=== PATIENT | female | born 1975 | race Two or more races ===

== ENCOUNTER 2024-08-17 05:40 | Day surgery (SDC) | payer MEDICAID, SELFPAY ==
--- NOTE | 2024-08-14 10:44 | EKG_ITS ---
[facility] Test Date: 2024-08-14 Pat Name: ODESSA QUINTERO Department: Room: - Gender: Female Mobile Crane Operator: IVONNE : 1975 Requested By: Tylor Comer Order Number: [id number] Reading MD: Tylor Comer Measurements Intervals [place] Rate: 89 P: 59 AR: 164 QRS: 14 QRSD: 80 T: 72 QT: 334 QTc: 408 Interpretive Statements SINUS RHYTHM No previous ECG available for comparison /store/S0/[id number]/ecg/[id number].pdf
[2024-08-14 10:56] VITALS: BMI 25.4
[2024-08-14 11:17] LABS: Collection Type, Urine Clean Catch
[2024-08-14 11:48] LABS: Basophils # (Auto) 0.1 Thou/mm3 (0.0-0.2); Basophils % (Auto) 1 % (0-2.5); Eosinophils # (Auto) 0.1 Thou/mm3 (0.0-0.5); Eosinophils % (Auto) 1 % (0-10); Hematocrit 41.4 % (36.0-46.0); Hemoglobin 13.9 g/dL (12.0-16.0); Immature Granulocytes % (Auto) 0 % (0-0); Immature Granulocytes Auto 0.01 Thou/mm3 (0.00-0.00); Lymphocytes # (Auto) 2.2 Thou/mm3 (1.0-4.8); Lymphocytes % (Auto) 27 % (10-50); Mean Corpuscular HGB Conc 33.6 g/dl (31.0-37.0); Mean Corpuscular Hemoglobin 28.3 pg (25.0-35.0); Mean Corpuscular Volume 84 fL (80-100); Monocytes # (Auto) 0.6 Thou/mm3 (0.0-0.8); Monocytes % (Auto) 7 % (0-12); Neutrophils # (Auto) 5.1 Thou/mm3 (1.8-7.7); Neutrophils % (Auto) 64 % (37-80); Nucleated Red Blood Cell % 0 /100 WBC (0); Platelet Count 285 Thou/mm3 (140-440); RDW Standard Deviation 37.1 fL (36.4-46.3); Red Blood Count 4.91 Miln/mm3 (4.00-5.20)
[2024-08-14 11:52] LABS: Bilirubin,Urine Negative (Negative); Blood,Urine Negative (Negative); Clarity,Urine Clear (Clear/Hazy); Color,Urine Lt-Yellow (Lt Yel-Yel); Glucose, Urine Negative (Negative); Ketones,Urine Negative (Negative); Leukocyte Esterase,Urine Negative (Negative); Nitrite,Urine Negative (Negative); Protein,Urine Negative (Neg - Trace); RBC,Urine 2 /hpf (0-3); Specific Gravity,Urine 1.012 (1.001-1.035); Squamous Epithelial Cell,Urine < 1 /hpf (0-5); Urobilinogen,Urine Negative mg/dL (0.0-1.0); WBC,Urine 1 /hpf (0-5)
[2024-08-14 11:54] LABS: Alanine Aminotransferase 18 U/L (10-49); Albumin, Serum 5.2 gm/dL (3.5-5.0); Albumin/Globulin Ratio 2.1 (1.2-2.2); Alkaline Phosphatase 76 U/L (46-116); Anion Gap 9 (7-16); Aspartate Amino Transferase 17 U/L (0-34); BUN/Creatinine Ratio 13 Ratio (12-20); Bilirubin,Total 0.6 mg/dL (0.3-1.2); Blood Urea Nitrogen 10 mg/dL (9-23); Calcium 9.6 mg/dL (8.3-10.6); Calcium (Corrected) 9.6 mg/dL (8.5-10.1); Carbon Dioxide 26.7 mMol/L (20.0-31.0); Chloride 103 mMol/L (98-107); Creatinine (Component) 0.8 mg/dL (0.6-1.3); Estimated Creatinine Clearance 64.1 mL/min (>60); Globulin 2.5 gm/dL (2.3-3.5); Glucose 144 mg/dL (74-106); Osmolality,Calculated 279 (275-295); Potassium 3.5 mMol/L (3.4-5.1); Sodium 139 mMol/L (136-145); Total Protein 7.7 gm/dL (5.7-8.2); eGFR > 60 See Note
[2024-08-14 12:04] LABS: Partial Thromboplastin Time 24.3 Seconds (22.0-36.0); Prothrombin Time 10.9 Seconds (9.0-12.2)
--- NOTE | 2024-08-16 13:47 | PD.SURHP ---
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 Risk benefits and alternatives were discussed with the patient and informed consent is obtained. There is a small risk of injury to the recurrent laryngeal nerve. Past Medical History Past Medical History NEUROLOGIC: Positive Neurological Disorders and Migraine CARDIAC: Negative Cardiac Disorders or Congestive Heart Failure RESPIRATORY: Positive Respiratory Disorders and Pneumonia; Negative Chronic Obstructive Pulmonary Disease (COPD) GASTROINTESTINAL: Negative Gastrointestinal Disorders or Hepatitis GENITOURINARY: Negative Genitourinary Disorders or Renal Disease REPRODUCTIVE: Positive Previous Pregnancies MUSCULOSKELETAL: Positive Musculoskeletal Disorders and Arthritis ENT: Negative History of ENT Problems ENDOCRINE: Negative Endocrine Disorders, Diabetes Mellitus Type 1 or Diabetes Mellitus Type 2 HEMATOLOGIC: Negative Blood Disorders OTHER HISTORY: Negative Hospitalization, Autoimmune Disease, Shingles, Blood Transfusions, Anesthesia Reactions or Cancer Family History FAMILY HISTORY: Positive Family Cardiac Disorders, Family Endocrine Disorders, Family Cancer and Family Surgery; Negative Family Psychiatric Problems, Family Respiratory Disorders, Family Gastrointestinal Problems, Family Genitourinary Problems, Family Reproductive Disorders, Family Musculoskeletal Disorders or Family Anesthesia Reaction Surgical History SURGICAL: Positive Hysterectomy Social History SMOKING STATUS: Never smoker Travel History EB[place]A RISK: No Meds Home Medications and Allergies Home Medications ?Medication ?Instructions ?Recorded ?Confirmed ?Type No Known Home Medications 08/14/24 08/14/24 History Allergies Allergy/AdvReac Type Severity Reaction Status Date / Time No Known Allergies Allergy Verified 08/14/24 10:55 Exam Constitutional Constitutional: no acute distress Routine HEENT Exam Head: Present normocephalic Eye: Present EOMI and PERRL ENT: Present mucous membranes moist Routine Neck Exam Neck: Present supple and trachea midline Comments: There is mass in the right lobe of the thyroid gland it is not attached to the skin and it moves up and down with the thyroid. There is no jugular venous distention and the abnormal palpable nodes in the neck. Routine Chest/Breast/Axilla Exam Chest wall: Absent tenderness or mass Routine Respiratory Exam Respiratory: Present chest non-tender, lungs clear, normal breath sounds and no resp distress; Absent respiratory distress Routine Cardiovascular Exam Cardiovascular: Present RRR Routine Abdominal Exam Abdominal: Present soft and normoactive bowel sounds Routine Extremities Exam Extremities: Present full ROM Routine Skin Exam Skin: Present intact, dry and warm Routine Neurological Exam Neurological: Present alert, oriented X3 and CN II-XII intact Routine Psychiatric Exam Psychiatric: Present normal affect and normal thought process Results Results: Laboratory Laboratory results: results reviewed Assessment & Plan Problem List (1) 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 Rapid frozen section. Risk benefits and alternatives were discussed with the patient and informed consent is obtained. There is a small risk of injury to the recurrent laryngeal nerve. Quality Measures Quality Measures VTE prophylaxis
[2024-08-17] VITALS (22 sets, daily range): BP systolic 122–149; BP diastolic 57–89; PULSE 80–114; RESP 12–99; TEMP 36.2–37.1; O2SAT 95–100; BMI 26.2
--- NOTE | 2024-08-17 10:13 | SUR.PHASEI ---
pt received from OR in recovery bay 5. pt asleep but responds to voice, breathing unlabored on 8l oxymask. v/s stable. pt dressing to neck cdi, naseem drain in place. report received from Dr. Berumen and James DE LA CRUZ.
--- NOTE | 2024-08-17 10:17 | ESOP_ITS ---
Date of Procedure 08/17/24 Pre Op Diagnosis Mass right lobe thyroid suspicious for follicular neoplasm on FNA. [place] category 4 Post Op Diagnosis Same. Procedure Right thyroid lobectomy with rapid frozen section Findings This 49-year-old female had a tumor in the right lobe of the thyroid gland there was previously biopsied by percutaneous FNA, that showed a [place] category 4 follicular neoplasm. She was brought to the operating room for right thyroid lobectomy and that was carried out. It showed that she had a nodule in the right lobe of the thyroid gland and the rapid frozen section was done by the pathologist who found that it likely is noncancerous. Final pathology pending. Procedure Description Patient was examined in the preop area. Site and site were marked. Procedure was discussed with the patient in detail with an online quality improvement analyst on a contracted heavy equipment operator by the hospital. The risk benefits alternatives were discussed with the patient and informed consent was obtained. The risks include bleeding infection recurrent laryngeal nerve injury and hypoparathyroidism along with anesthesia related risks. The patient was brought to the operating room and placed on the operating table in supine position. General anesthesia was administered in a satisfactory manner. IV antibiotics were given to the patient. Local anesthesia 0.25% Marcaine with epinephrine was used as an adjunct. Curvilinear transverse incision is made in the neck 2 fingerbreadths above the sternal notch. This was deepened through the layers of skin subcutaneous tissue and platysma. The upper and lower flaps were developed below the platysma. The deep cervical fascia was incised in the midline. The flat muscles were retracted on the side. Dissection was carried out between the right lobe of the thyroid and the flat muscles. Hemostasis was achieved. Branches of the inferior thyroid artery were identified and ligated with harmonic ultrasonic brenda very close to the thyroid and divided. The blood supply to the parathyroid gland was protected. The lobe was rotated anteriorly. Middle thyroid vessels were identified and they were divided with harmonic ultrasonic brenda close to the thyroid. There were several small arteries entering the thyroid likely from the previous inflammation. These were sequentially divided with the harmonic ultrasonic brenda very close to the thyroid. The recurrent laryngeal nerve was identified and was protected. The Blum's ligament was examined and the superior thyroid vessels were identified and ligated and divided with harmonic ultrasonic brenda. Now the lobe is dissected and from the anterior wall of the trachea. Hemostasis was achieved. The isthmus was from the trachea. The junction of the isthmus and the right lobe of the thyroid gland was divided with harmonic ultrasonic brenda. The specimen was removed and then oriented anatomically for the pathologist. Rapid frozen section was carried out and the result was inconclusive and it was likely a benign nodule in the right lobe of the thyroid gland. The final diagnosis is pending on permanent section. The divided end of the isthmus was suture-ligated with 3-0 PDS continuous suture for hemostasis. After the frozen section result was received the right side of the neck was ex amined and irrigated with saline solution and hemostasis was achieved. There was mild oozing in this location and therefore Surgicel was placed and then a Lonnie-Martínez 10 [place] round was placed in the right neck and sutured to the skin using 2-0 nylon suture. The deep cervical fascia was closed in midline using 4-0 Vicryl continuous suture. The platysma was approximated by 4-0 Vicryl interrupted sutures. The skin was approximated by kyung. Hernandez Annes dressing was applied. Patient tolerated the procedure very well. Complications none. At the time of extubating anesthesiologist examined vocal cords and they were moving normally. Anesthesia GETA Drains Lonnie-Martínez 10 Macedonian round in the right neck Implants None. Pathology / specimen Other (Right lobe of the thyroid gland for rapid frozen section) Estimated Blood Loss 10 Condition Stable Disposition PACU Surgeon Tylor Comer MD Surgical Staff Operation Date: 08/17/24 07:30 Case Staff Anesthesiologist: Dominguez Berumen RN First Assistant: Marlyn Loya surgical coder Wooten a surgical technology student
[2024-08-17] MEDS: fentaNYL CIT INJ 50 mCg/ML AMP 2ML 25 MCG IV ×4 (10:47→14:38)
--- NOTE | 2024-08-17 15:00 | SUR.PHASEII ---
pt naseem drain emptied 20cc sanguineous.
--- NOTE | 2024-08-17 15:24 | SUR.PHASEII ---
pt able to tolerate oral fluids without difficulty swallowing or nausea/vomiting.
--- NOTE | 2024-08-17 16:55 | SUR.PHASEII ---
pt awake and alert, breathing unlabored on room air. v/s stable. pt dressing to neck cdi, naseem drain in place. report called to Sarahy RN. pt will be transferred to room at this time.
[2024-08-17] MEDS: ACETAMINOPHEN IVPB 1,000 MG/100 ML VIAL 250 MG IV ×2 (18:38→23:28)
[2024-08-17] MEDS: GABAPENTIN 300 MG CAPSULE PO (18:39)
--- NOTE | 2024-08-17 19:04 | PC.ADMIT ---
Pt arrived to [facility] floor at 1700 with 20 Gauge PIV in left hand, family at bedside, tolerated transfer well, Pt lying in bed, HOB raised 30 degrees, bed in low position, call light in hand.
[2024-08-18] VITALS: BP 123/65; PULSE 114; RESP 16; TEMP 36.6; O2SAT 98
[2024-08-18 01:06] VITALS: PULSE 86; RESP 16; RESP 96
[2024-08-18 04:00] VITALS: BP 124/74; PULSE 72; RESP 18; TEMP 36.6; O2SAT 93
[2024-08-18] MEDS: ACETAMINOPHEN IVPB 1,000 MG/100 ML VIAL 250 MG IV ×2 (05:39→12:10)
[2024-08-18] MEDS: GABAPENTIN 300 MG CAPSULE PO ×2 (05:40→14:00)
[2024-08-18 08:00] VITALS: BP 105/65; PULSE 76; RESP 14; TEMP 36.1; O2SAT 98
[2024-08-18 10:00] VITALS: PULSE 76; RESP 18; RESP 98
--- NOTE | 2024-08-18 10:28 | PC.SS ---
SS follow up note; Patient had surgery yesterday with Dr. Comer.
--- NOTE | 2024-08-18 11:13 | PD.SURPROG ---
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 Risk benefits and alternatives were discussed with the patient and informed consent is obtained. There is a small risk of injury to the recurrent laryngeal nerve. August 18, 2024 postop day 1 status post right thyroid lobectomy. Patient has a small amount of pain requiring pain medication but it can be handled with oral pain medication. She has been tolerating semisolid diet well without any difficulty she is getting out of the bed and ambulating in the hallways. The drain is in place and is draining very small amount of fluid. There are no other complaints patient wants to go home. Exam Vital Signs Temp Pulse Resp BP Pulse Ox O2 Del Method O2 Flow Rate 96.9 F 76 18 105/65 98 Room Air 5 08/18/24 08:00 08/18/24 10:00 08/18/24 10:00 08/18/24 08:00 08/18/24 08:00 08/18/24 08:00 08/17/24 10:20 Narrative Exam The dressing in the neck is removed shows there is no infection or hyperemia Lonnie-Martínez drain is removed there is no swelling in the neck or hematoma. Bonifacio are in place. The cardiopulmonary exam is normal extremities are unremarkable. 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 Follow-up in the office in 7 days. Oral pain medications. Procedures Procedure Date 08/17/24 Procedures Right thyroid lobectomy with rapid frozen section August 17, 2024
--- NOTE | 2024-08-18 11:29 | ESDS_ITS ---
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 This was done because she had a [place] class IV tumor in the right lobe of the thyroid gland on biopsy. She underwent right thyroid lobectomy and after the surgery she was evaluated by the anesthesiologist and the vocal cords were intact with no evidence of recurrent laryngeal nerve injury. Postoperatively she required pain medication overnight she had a drain that was draining small amount of serosanguineous fluid. On postop day 1 today the drain was removed there is no infection no swelling in and that she is doing very well tolerating semisolid food well. She is ambulating in the room in the hallways and is ready to go home. Her condition is very good at the time of discharge. Exam Vital Signs Temp Pulse Resp BP Pulse Ox O2 Del Method O2 Flow Rate 96.9 F 76 18 105/65 98 Room Air 5 08/18/24 08:00 08/18/24 10:00 08/18/24 10:00 08/18/24 08:00 08/18/24 08:00 08/18/24 08:00 08/17/24 10:20 Narrative Exam The drain is removed from the neck incision the incision is healing normally there is no hyperemia there is no swelling and the kyung are in place. Cardiopulmonary examination is unremarkable extremities are unremarkable. Discharge Plan Plan Patient Disposition: HOME (Self Care) Disposition Comment: Follow-up in the office in 7 days Prescriptions/Referrals Prescriptions/Med Rec: New hydrocodone-acetaminophen 10-325 mg tablet 1 tab PO Q6H MDD 4 PRN (Reason: pain) Qty: 20 0RF Referrals: Praful John [Primary Care Provider] - Patient/Caregiver Discharge Instructions Other Discharge Activity Instructions:: May take shower in 48 hours keep the incision dry. Other Discharge Diet Instructions: Advance diet to regular diet as tolerated. Print Language: Citizen Of [place] Stand Alone Forms: Lauren Award Info., Patient Portal Info Letter Discharge Order Discharge Orders: Discharge (Routine); Ordered 08/18/24 Ordered By: Tylor Comer Procedures Procedure Date 08/17/24 Procedures Right thyroid lobectomy with rapid frozen section August 17, 2024
--- NOTE | 2024-08-18 11:58 | PC.SS ---
Patient Esther Hills is a 49 Year old female admitted for RT Thyroid LOB 8[address]42. SS met with patient at bedside to discuss discharge plan. Patient reports she lives at home with family.Patient's surrogate decision maker is her daughter, Kyung Aguilera [phone]. Patient does not utilize any source of DME to assist with ambulation. Patients choice of pharmacy is [facility] in [place] Patients PCP is Praful Ashraf. At time of discharge patient will discharge home. Next of Kin, Daughter, Kyung Aguilera [phone] Discharge Plan: Home PCP: Praful John
[2024-08-18 12:00] VITALS: BP 129/83; PULSE 76; RESP 14; TEMP 36.2; O2SAT 98
== END 2024-08-18 14:13 | disposition home or self-care (01) ==
LOC: S2EX 05:50 → S3NX 08-18 11:19
PROVIDERS: PCP Pediatrics; Referring Provider Specialist; Visit Provider Specialist
PROC: (CPT 60220; principal; 2024-08-17 07:30)
DX: D34 Benign neoplasm of thyroid gland (principal); Z01.810 Encounter for preprocedural cardiovascular examination
CPT/HCPCS: 60220; 36415; 80053; 81001; 85025; 85610; 85730; 93005; A4217; A4649; J0131; J0690; J0694; J1100; J2250; J2405; J2704; J3010; J3490; A9270